=== PATIENT | female | born 1995 | race Caucasian/White ===

== ENCOUNTER 2019-09-23 02:46 | Emergency (ER) | payer BC ==
--- NOTE | 2019-09-23 03:29 | EDM.PDOC ---
ED HPI GENERAL MEDICAL PROBLEM - General Chief Complaint: Abdominal Pain Stated Complaint: RIGHT SIDE LOWER ABDOMINAL PAIN Time Seen by Provider: 09/23/19 03:07 Source of Information: Reports: Patient History Limitations: Reports: No Limitations - History of Present Illness INITIAL COMMENTS - FREE TEXT/NARRATIVE: This is a 24-year-old female. She was sleeping soundly until 1 AM when she rolled over and she had a sharp shooting pain from her bellybutton down into her pelvis. She tried to lay on her right side and the pain seemed to get worse. If she curled into a ball it seemed to get better and she had a hard time getting up from the bed due to the pain. She has had no fever she has had no constipation or diarrhea. She denies any nausea vomiting or diarrhea. She denies any urinary symptoms and she denies being . She does have an IUD so she has intermittent periods. She comes to the ER for evaluation. The sharp pain is, eased up some now that she has been moving around though she says it still happens occasionally. She has no history of ovarian cysts. Middle Abdomen Pain Score (Numeric/FACES): 6 - Related Data Allergies Allergy/AdvReac Type Severity Reaction Status Date / Time No Known Allergies Allergy Verified 09/23/19 02:57 Home Meds: Home Meds Spironolactone 50 mg PO DAILY 09/23/19 [History] Past Medical History HEENT History: Reports: Impaired Vision Other HEENT History: Wears glasses Social & Family History - Tobacco Use Smoking Status *Q: Never Smoker - Recreational Drug Use Recreational Drug Use: No ED ROS GENERAL - Review of Systems Review Of Systems: See Below Constitutional: Denies: Fever, Chills HEENT: Reports: No Symptoms Respiratory: Reports: No Symptoms Cardiovascular: Reports: No Symptoms Endocrine: Reports: No Symptoms GI/Abdominal: Reports: Abdominal Pain. Denies: Constipation, Diarrhea, Nausea, Vomiting : Denies: Discharge, Dysuria, Flank Pain Musculoskeletal: Reports: No Symptoms Skin: Reports: No Symptoms Neurological: Reports: No Symptoms Psychiatric: Reports: No Symptoms Hematologic/Lymphatic: Reports: No Symptoms ED EXAM, GI/ABD - Physical Exam Exam: See Below Exam Limited By: No Limitations General Appearance: Alert, WD/WN, No Apparent Distress Eyes: Bilateral: Normal Appearance Ears: Normal External Exam Nose: Normal Inspection Throat/Mouth: Normal Inspection, Normal Lips, Normal Voice, No Airway Compromise Head: Normocephalic Neck: Supple Respiratory/Chest: No Respiratory Distress Cardiovascular: Regular Rate, Rhythm, No Murmur GI/Abdominal Exam: Soft, No Mass, Other (Mildly tender in the suprapubic area on palpation, negative McBurney's sign, there is no peritoneal irritation on palpation of the 4 quadrants, she does have bowel sounds in all 4 quadrants). No: Distended, Guarding, Rigid Back Exam: Full Range of Motion Extremities: Normal Inspection, Normal Range of Motion Neurological: Alert, Oriented Psychiatric: Normal Affect, Normal Mood Skin Exam: Warm, Dry Course - Vital Signs Last Recorded V/S: Last Vital Signs Temp 98.3 F 09/23/19 02:57 Pulse 78 09/23/19 02:57 Resp 19 09/23/19 02:57 BP 122/81 09/23/19 02:57 Pulse Ox 96 09/23/19 02:57 - Orders/Labs/Meds Orders: Active Orders 24 hr Category Date Time Status Transvaginal Non OB [US] Stat Exams 09/23/19 04:23 Taken Labs: Laboratory Tests 09/23/19 09/23/19 09/23/19 Range/Units 03:31 03:31 03:37 WBC 8.81 (3.98-10.04) K/mm3 RBC 4.71 (3.98-5.22) M/mm3 Hgb 14.0 (11.2-15.7) gm/dl Hct 39.2 (34.1-44.9) % MCV 83.2 (79.4-94.8) fl MCH 29.7 (25.6-32.2) pg MCHC 35.7 H (32.2-35.5) g/dl RDW Std Deviation 38.6 (36.4-46.3) fL Plt Count 271 (182-369) K/mm3 MPV 10.3 (9.4-12.3) fl Neut % (Auto) 65.6 (34.0-71.1) % Lymph % (Auto) 24.3 (19.3-51.7) % [place] % (Auto) 8.6 (4.7-12.5) % Eos % (Auto) 1.2 (0.7-5.8) Baso % (Auto) 0.2 (0.1-1.2) % Neut # (Auto) 5.77 (1.56-6.13) K/mm3 Lymph # (Auto) 2.14 (1.18-3.74) K/mm3 [place] # (Auto) 0.76 H (0.24-0.36) K/mm3 Eos # (Auto) 0.11 (0.04-0.36) K/mm3 Baso # (Auto) 0.02 (0.01-0.08) K/mm3 HCG, Qual Negative (NEGATIVE) Urine Color Not (Yellow) Urine Appearance Not entered (Clear) Urine pH 7.0 (5.0-8.0) Ur Specific [place] 1.025 (1.005-1.030) Urine Protein Negative (Negative) Urine Glucose (UA) Negative (Negative) Urine Ketones Negative (Negative) Urine Occult Blood Negative (Negative) Urine Nitrite Negative (Negative) Urine Bilirubin Negative (Negative) Urine Urobilinogen 0.2 (0.2-1.0) Ur Leukocyte Esterase Negative (Negative) Urine RBC 0-5 (0-5) /hpf Urine WBC 0-5 (0-5) /hpf Ur Squamous Epith Cells 0-5 (0-5) /hpf Urine Bacteria Rare (FEW) /hpf Urine Mucus Not seen (FEW) /hpf - Radiology Interpretation Free Text/Narrative:: The pelvic ultrasound shows a enlarged right ovary with a ovarian complex cystic lesion possibly a hemorrhagic cyst with some complex right adnexal fluid noted. - Re-Assessments/Exams Free Text/Narrative Re-Assessment/Exam: 09/23/19 06:03 I spoke to the patient regarding her sharp pain she is having in her suprapubic and slightly right lower quadrant that I believe this is related to the ovarian cyst that might be leaking or might have ruptured because she has fluid down there. She states the pain is markedly better now though I did warn her that she is going to turn her balance or bump or walk a certain way and she might get some sharp pain again but normally this will resolve in about 24 to 48 hours. She does have a ENDOSCOPY RN doctor that she normally sees and she will call that doctor on Wednesday for recheck. Departure - Departure Time of Disposition: 06:04 Disposition: Home, Self-Care 01 Condition: Good Clinical Impression: Right ovarian cyst, Lower abdominal pain - Discharge Information *PRESCRIPTION DRUG MONITORING PROGRAM REVIEWED*: Not Applicable *COPY OF PRESCRIPTION DRUG MONITORING REPORT IN PATIENT RYAN: Not Applicable Instructions: Ovarian Cyst, [id number] Referrals: Valeria Blackman MD [Primary Care Provider] - Forms: ED Department Discharge Additional Instructions: Be careful with jarring movements next 24 hours because it might cause some additional sharp pain in your lower abdomen, certainly you can take some Tylenol or ibuprofen as needed for the pain, follow-up with your ENDOSCOPY RN doctor by calling them on Wednesday and getting an appointment to be seen in follow-up for the right ovarian cyst, return to the ER as needed Sepsis Event Note - Evaluation Sepsis Screening Result: No Definite Risk - Focused Exam Vital Signs: Vital Signs Temp Pulse Resp BP Pulse Ox 09/23/19 02:57 98.3 F 78 19 122/81 96 Date Exam was Performed: 09/23/19 Time Exam was Performed: 06:03 - My Orders Last 24 Hours: My Active Orders 09/23/19 04:23 Transvaginal Non OB [US] Stat - Assessment/Plan Last 24 Hours: My Active Orders 09/23/19 04:23 Transvaginal Non OB [US] Stat
--- NOTE | 2019-09-23 09:26 | US ---
Pelvic ultrasound: Multiple real-time images were obtained transvaginally. Comparison: No previous pelvic imaging is available. Uterus is retroflexed. No discrete myometrial abnormality is appreciated. Endometrial thickness is 6 mm. Echogenic area is noted within the endometrial cavity compatible with IUD. Complicated cyst noted within the right ovary measuring up to 2.2 cm most likely representing hemorrhagic cyst. Complicated fluid is seen within the right adnexa believed to represent fluid is leaking from the right sided cyst. Ovaries are otherwise unremarkable. Measurements: Uterus: Length 7.4 cm, AP height 3.7 cm, transverse width is 4.2 cm Right ovary (measurements include above noted cyst): 5.2 x 2.5 x 2.1 cm Left ovary: 3.3 x 1.8 x 1.4 cm Impression: 1. Small hemorrhagic cyst within the right ovary with complicated fluid noted within the right adnexa most likely representing fluid that is leaking from the right sided hemorrhagic cyst. Please correlate that the patient has a negative test. 2. IUD present within the endometrial cavity. 3. No additional abnormality is noted on pelvic ultrasound. Diagnostic code #3 Agree with preliminary report issued by [facility] ([facility] preliminary report dictated on 09/23/19, 6:52 AM Central Time) Study was dictated in MDT
== END 2019-09-23 06:19 | disposition home or self-care (01) ==
LOC: JD.ED 02:46
DX: N83.201 Unspecified ovarian cyst, right side (principal)
CPT/HCPCS: 36415; 76830; 76830-26; 81001; 84703; 85025; 99283; 99284-25

== ENCOUNTER 2023-07-04 08:30 | Inpatient (IN) | payer BC ==
[~2023-07-04 08:30] MED LIST: Ropivacaine 0.2% PF 2 MG/ML 20 ML SDV ONE
[2023-07-04] MEDS ORDERED: Nalbuphine HCl 10 MG/ 1ML Amp IVPUSH PRN (08:42)
[2023-07-04] MEDS ORDERED: Lidocaine 1% 50 ML MDV INJECT PRN (08:42)
[2023-07-04] MEDS ORDERED: Ondansetron 4 MG/2 ML SDV IVPUSH PRN (08:42)
[2023-07-04] MEDS ORDERED: Calcium Carbonate 500 MG Tab.Chew PO PRN (08:42)
[2023-07-04] MEDS ORDERED: Acetaminophen 325 MG Tab PO PRN (08:42)
[2023-07-04] MEDS ORDERED: Oxytocin/Lactated Ringers 30 UNIT/500 ML BAG IV SCH ×2 (08:45→14:30)
[2023-07-04] MEDS ORDERED: Penicillin G Potassium 5 MILLUNITS in Sodium Chloride 0.9% 100 ML IV SCH (08:45)
[2023-07-04 09:08] LABS: BASOPHILS PERCENT AUTO 0.2 % (0.0-1.0); EOSINOPHILS PERCENT AUTO 0.3 % (0.0-6.0); HEMATOCRIT 40.5 % (37.0-47.0); HEMOGLOBIN 14.1 gm/dl (12.0-16.0); IMMATURE GRAN ABSOLUTE AUTO 0.07 K/mm3 (0.00-0.05); IMMATURE GRAN PERCENT AUTO 0.6 % (0.0-0.4); LYMPHOCYTES ABSOLUTE AUTO 1.6 K/mm3 (1.0-4.8); LYMPHOCYTES PERCENT AUTO 12.9 % (24.0-44.0); MEAN CORPUSCULAR HEMOGLOBIN 29.7 pg (28.0-32.0); MEAN CORPUSCULAR HGB CONC 34.8 g/dl (32.0-36.0); MEAN CORPUSCULAR VOLUME 85.4 fl (83.0-99.0); MEAN PLATELET VOLUME 10.4 fl (9.4-12.3); MONOCYTES ABSOLUTE AUTO 0.6 K/mm3 (0.0-0.8); MONOCYTES PERCENT AUTO 4.6 % (0.0-8.0); NEUTROPHILS ABSOLUTE AUTO 9.9 K/mm3 (1.8-7.7); NEUTROPHILS PERCENT AUTO 81.4 % (41.0-71.0); PLATELET COUNT,PLT 262 K/mm3 (150-400); RED BLOOD CELL COUNT 4.74 M/mm3 (4.10-5.30); WHITE BLOOD CELL COUNT,WBC 12.19 K/mm3 (3.9-11.3)
[2023-07-04] MEDS: Lactated Ringers 1,000 ML IV SCH ×3 (09:12→12:52)
[2023-07-04] MEDS ORDERED: fentaNYL 100 MCG/2 ML SDV EPIDUR PRN (11:35)
[2023-07-04] MEDS ORDERED: diphenhydrAMINE 50 MG/ML SDV IVPUSH PRN (11:35)
[2023-07-04] MEDS ORDERED: Bupivacaine/fentaNYL/NS 100 ML Bag EPIDUR PRN (11:35)
[2023-07-04] MEDS ORDERED: ePHEDrine 50 MG/ML SDV IVPUSH PRN (11:35)
[2023-07-04] MEDS: Penicillin G Potassium 2.5 MILLUNITS in Sodium Chloride 0.9% 100 ML IV SCH ×2 (12:53→16:59)
[2023-07-04] MEDS ORDERED: Measles, Mumps & Rubella Vaccine 0.5 ML SDV SUBCUT ONE (18:45)
[2023-07-04] MEDS ORDERED: Witch Hazel Medicated Pads 40/Jar TOP PRN (18:45)
[2023-07-04] MEDS ORDERED: Docusate Sodium 100 MG Cap PO PRN (18:45)
[2023-07-04] MEDS ORDERED: Benzocaine/Menthol 20%-0.5% Spray 78 GM Cannister TOP PRN (18:45)
[2023-07-04] MEDS ORDERED: ALBUTEROL PRN (18:50)
[2023-07-04] MEDS ORDERED: Albuterol 6.7 GM Inhaler INH PRN (19:00)
[2023-07-04] MEDS: Ibuprofen 600 MG Tab PO SCH (22:16)
[2023-07-05] MEDS: Ibuprofen 600 MG Tab PO SCH ×4 (00:39→22:58)
[2023-07-05 05:51] LABS: HEMATOCRIT 30.1 % (37.0-47.0); MEAN CORPUSCULAR HEMOGLOBIN 30.1 pg (28.0-32.0); MEAN CORPUSCULAR HGB CONC 35.5 g/dl (32.0-36.0); MEAN CORPUSCULAR VOLUME 84.8 fl (83.0-99.0); MEAN PLATELET VOLUME 10.1 fl (9.4-12.3); RED BLOOD CELL COUNT 3.55 M/mm3 (4.10-5.30); WHITE BLOOD CELL COUNT,WBC 12.74 K/mm3 (3.9-11.3)
[2023-07-05 06:01] LABS: HEMOGLOBIN 10.7 gm/dl (12.0-16.0)
[2023-07-05 06:02] LABS: PLATELET COUNT,PLT 185 K/mm3 (150-400)
[2023-07-05] MEDS ORDERED: Measles, Mumps & Rubella Vaccine 0.5 ML SDV SUBCUT ONE (18:00)
[2023-07-06 06:21] LABS: HEMATOCRIT 30.6 % (37.0-47.0); MEAN CORPUSCULAR HEMOGLOBIN 30.6 pg (28.0-32.0); MEAN CORPUSCULAR HGB CONC 35.9 g/dl (32.0-36.0); MEAN CORPUSCULAR VOLUME 85.2 fl (83.0-99.0); MEAN PLATELET VOLUME 10.6 fl (9.4-12.3); PLATELET COUNT,PLT 212 K/mm3 (150-400); RED BLOOD CELL COUNT 3.59 M/mm3 (4.10-5.30)
[2023-07-06] MEDS ORDERED: Measles, Mumps & Rubella Vaccine 0.5 ML SDV SUBCUT ONE (10:00)
[2023-07-06] MEDS: Ibuprofen 600 MG Tab PO SCH (10:28)
== END 2023-07-06 09:39 | disposition home or self-care (01) | DRG 560 ==
LOC: JD.OB 08:30 → OBSVTOIN 17:54 → JD.OB 17:54
PROVIDERS: ADMIT Obstetrics & Gynecology; ATTEND Obstetrics & Gynecology
PROC: 10E0XZZ Delivery of Products of Conception, External Approach (ICD-10-PCS; principal; 2023-07-04)
PROC: 10907ZC Drainage of Amniotic Fluid, Therapeutic from Products of Conception, Via Natural or Artificial Opening (ICD-10-PCS; 2023-07-04)
PROC: 0KQM0ZZ Repair Perineum Muscle, Open Approach (ICD-10-PCS; 2023-07-04)
PROC: 3E0R3BZ Introduction of Anesthetic Agent into Spinal Canal, Percutaneous Approach (ICD-10-PCS; 2023-07-04)
PROC: 00HU33Z Insertion of Infusion Device into Spinal Canal, Percutaneous Approach (ICD-10-PCS; 2023-07-04)
PROC: 3E0234Z Introduction of Serum, Toxoid and Vaccine into Muscle, Percutaneous Approach (ICD-10-PCS; 2023-07-06)
DX: O99.824 Streptococcus B carrier state complicating childbirth (principal); Z37.0 Single live birth; O99.52 Diseases of the respiratory system complicating childbirth; J45.909 Unspecified asthma, uncomplicated; O70.1 Second degree perineal laceration during delivery; Z23 Encounter for immunization; Z3A.40 40 weeks gestation of pregnancy; Z91.040 Latex allergy status; Z91.018 Allergy to other foods; Z98.890 Other specified postprocedural states
CPT/HCPCS: 01967; 36415; 51702; 59025; 59409; 85025; 85027; 86592; 90471; 90707; A9270-GY; J2001; J2540; J2795; J3010; J3490; J7120; J7999